=== PATIENT | male | born 1950 | race Caucasian/White ===

== ENCOUNTER 2016-09-27 23:59 | Emergency (ER) | payer OTHER ==
[~2016-09-27] VITALS: Ht 193 cm; Wt 104.3 kg
[2016-09-28 07:11] VITALS: BP 152/77
== END 2016-09-28 07:11 | disposition home or self-care (01) ==
LOC: ED 23:59
DX: F10.129 Alcohol abuse with intoxication, unspecified (principal); E11.9 Type 2 diabetes mellitus without complications; Z79.84 Long term (current) use of oral hypoglycemic drugs
CPT/HCPCS: 82962; J7030

== ENCOUNTER 2016-09-29 20:09 | Emergency (ER) | payer OTHER ==
[2016-09-29 23:23] LABS: CALCIUM 8.3 mg/dL (8.5-10.1); CARBON DIOXIDE 24.9 mmol/L (21-32); CHLORIDE SERUM 106 mmol/L (98-107); CREATININE SERUM 0.8 mg/dL (0.7-1.3); GFR1 > 60 mL/min; GLUCOSE SERUM 273 mg/dL (74-106); POTASSIUM SERUM 3.4 mmol/L (3.5-5.1); SODIUM SERUM 145 mmol/L (136-145)
[2016-09-30 04:10] VITALS: BP 144/89
== END 2016-09-30 04:10 | disposition home or self-care (01) ==
LOC: ED 20:09
PROVIDERS: Specialist
DX: F10.229 Alcohol dependence with intoxication, unspecified (principal); E11.65 Type 2 diabetes mellitus with hyperglycemia
CPT/HCPCS: 36600; 82962; J3411; J3475; J3490